=== PATIENT | female | born 1960 | race African-American/Black ===

== ENCOUNTER → 2017-04-23 | Emergency (ER) | payer OTHER ==
[~2017-04-23] VITALS: Ht 170.2 cm; Wt 90.9 kg
[~2017-04-23] MED LIST: ALBUTEROL2.5 MG/3 M; AMBIEN CR6.25 MG PO; AMRIX ER PO; AMRIX15 MG PO; ATORVASTATIN 20 MG T; ATORVASTATIN CA20 MG PO; BACLOFEN10 MG PO; BOTOX100 UNITS IJ; BUTORPHANO10 MG/1 ML NS; CELEBREX200 MG PO; CIPRO XR 500 M500 MG PO; COLACE100 MG PO; COUMADIN1 MG PO; COUMADIN10 MG PO; COUMADIN2 MG PO; COUMADIN4 MG PO; COUMADIN5 MG PO; CYMBALTA60 MG; CYMBALTA60 MG PO; DIAZEPAM5 MG PO; DILTIAZEM 24HR180 MG PO; DILTIAZEM 24HR240 MG PO; FIORICET 50-301 EACH PO; FIORICET,ESG1 TABLET PO; FLEXERIL10 MG PO; FLONASE16 G1 BOTH NARES; FLUTICASONE PRO16 GM; FORADIL AEROLI12 MCG; FORADIL AEROLI12 MCG IH; GABAPENTIN300 MG; GABAPENTIN300 MG PO; HYDROCODON-ACE1 EAC7 PO; JANTOVEN4 MG PO; LIORESAL10 MG PO; LIPITOR20 MG PO; MEDROL4 MG; MIGRANAL1 ML; MIGRANAL1 ML BOTH NARES; MIGRANAL1 ML NS; MONTELUKAST SOD10 MG; NEURONTIN300 MG PO; NEURONTIN600 MG PO; NUCYNTA100 MG; NUCYNTA100 MG PO; NUCYNTA50 MG PO; OXYCODONE HCL5 MG PO; PANTOPRAZOLE SO40 MG PO; PHENERGAN25 MG PR; PREDNISONE20 MG PO; PROMETHAZINE HC25 M1 PO; PROTONIX40 MG PO; PROVENTIL HFA6.7 GM IH; PROVENTIL,2.5 MG/3 M IH; REGLAN10 MG PO; REQUIP2 MG PO; SEROQUEL; SINGULAIR10 MG PO; STADOL NASAL2.5 ML NS; TOPIRAMATE100 MG PO; TROKENDI XR100 MG PO; VALIUM5 MG PO; WARFARIN SODIU7.5 MG PO; WARFARIN SODIUM2 MG PO; ZITHROMAX Z-PA250 MG PO; ZYRTEC10 M3 PO
[2017-04-23 11:50] LABS: MCH 30.7 PG (29.0-34.0); MCHC 33.2 G/DL (30.0-36.0); MCV 92.5 FL (83-99); MEAN PLAT.VOLUME 10.2 uM^3 (9.5-12.4); PLATELET COUNT 231 K/uL (156-360); RED BLOOD COUNT 4.11 M/uL (3.80-5.20); WHITE BLOOD COUNT 5.1 K/uL (4.1-10.2)
[2017-04-23 12:01] LABS: CHLORIDE 105 mEq/L (99-109); POTASSIUM 3.4 mEq/L (3.7-5.4); SODIUM 136 mEq/L (136-147)
[2017-04-23 12:02] LABS: GLUCOSE 101 mg/dL (70-99)
[2017-04-23 12:04] LABS: ANION GAP 8 MEQ/L (2-14)
[2017-04-23 12:06] LABS: GFR ESTIMATE (CALCULATED) > 59 mL/min/
[2017-04-23 12:07] LABS: UREA NITROGEN (BUN) 12 mg/dL (9-23)
[2017-04-23 12:11] LABS: TROP-I INTERPRETATION NEGATIVE; TROPONIN-I < 0.01 ng/mL (0.0-0.30)
[2017-04-23 13:27] LABS: D-DIMER ELISA < 150.00 ng/mLDDU (<230)
[2017-04-23 17:14] LABS: TROP-I INTERPRETATION NEGATIVE; TROPONIN-I < 0.01 ng/mL (0.0-0.30)
[2017-04-23 17:53] VITALS: BP 103/67
== END | disposition home or self-care (01) ==
LOC: EME 10:42
PROVIDERS: Physician Assistant Medical
DX: G43.909 Migraine, unspecified, not intractable, without status migrainosus (principal); M54.2 Cervicalgia; R07.9 Chest pain, unspecified; R19.7 Diarrhea, unspecified; R06.00 Dyspnea, unspecified; E78.5 Hyperlipidemia, unspecified; Z86.711 Personal history of pulmonary embolism; Z79.01 Long term (current) use of anticoagulants
CPT/HCPCS: 70450; 71020; 80048; 84484; 85027; 85379; 93005; 99281; 99284; J0780; J1200; J1885; J3010; J7030

== ENCOUNTER 2017-11-19 20:36 | Emergency (ER) | payer BC ==
[~2017-11-19] VITALS: Ht 170.2 cm; Wt 92.6 kg
[2017-11-19 21:33] LABS: APPEARANCE CLEAR ((CLEAR)); BILIRUBIN NEGATIVE; BLOOD NEGATIVE; COLOR YELLOW ((YELLOW)); GLUCOSE (STRIP) NEGATIVE; KETONES NEGATIVE; LEUKOCYTES SMALL; NITRITE NEGATIVE; PROTEIN (STRIP) NEGATIVE; SPECIFIC GRAVITY 1.018 (1.000-1.030); UROBILINOGEN 0.2 MG/DL (0.2-1.0)
[2017-11-19 21:39] LABS: BACTERIA RARE /HPF; EPITHELIAL CELLS RARE /HPF; MUCUS 1+ /LPF; RED BLOOD CELLS 0-5 /HPF (0-5); UCUL ADDED? NO; WHITE BLOOD CELLS 0-5 /HPF (0-5)
[2017-11-19 21:40] LABS: HEMATOCRIT 36.2 % (36.0-46.0); HEMOGLOBIN 12.4 G/DL (11.9-15.5); MCH 30.5 PG (29.0-34.0); MCHC 34.3 G/DL (30.0-36.0); MCV 89.2 FL (83-99); PLATELET COUNT 199 K/uL (156-360); RBC DIS.WIDTH-CV 12.6 % (11.8-14.6); RBC DIS.WIDTH-SD 41.7 % (39-53); RED BLOOD COUNT 4.06 M/uL (3.80-5.20); WHITE BLOOD COUNT 4.7 K/uL (4.1-10.2)
[2017-11-19 21:51] LABS: ALBUMIN 4.3 g/dL (3.2-4.8); CHLORIDE 106 mEq/L (99-109); POTASSIUM 3.6 mEq/L (3.7-5.4); SODIUM 138 mEq/L (136-147)
[2017-11-19 21:53] LABS: GLUCOSE 98 mg/dL (70-99); TOTAL PROTEIN 7.1 g/dL (6.4-8.3)
[2017-11-19 21:55] LABS: TOTAL BILIRUBIN 0.5 mg/dL (0.0-1.0)
[2017-11-19 21:57] LABS: ALKALINE PHOSPHATASE 93 IU/L (3-129); CREATININE 0.9 mg/dL (0.6-1.3); GFR ESTIMATE (CALCULATED) > 59 mL/min/
[2017-11-19 21:58] LABS: UREA NITROGEN (BUN) 16 mg/dL (9-23)
[2017-11-19 21:59] LABS: AST (GOT) 21 IU/L (2-34)
[2017-11-19 22:00] LABS: ALT (GPT) 25 IU/L (3-49)
[2017-11-19 22:06] LABS: QUANTITATIVE HCG 4.2 MIU/ML
[2017-11-19] MEDS ORDERED: BENTYL20 MG PO (23:31)
[2017-11-19 23:42] VITALS: BP 109/75
== END 2017-11-20 00:08 | disposition home or self-care (01) ==
LOC: RME 20:36 → EME 20:36 → RME 11-20 00:08
DX: R10.31 Right lower quadrant pain (principal); M54.9 Dorsalgia, unspecified; R11.0 Nausea; E78.5 Hyperlipidemia, unspecified; Z86.711 Personal history of pulmonary embolism; Z79.01 Long term (current) use of anticoagulants
CPT/HCPCS: 74177; 80053; 81003; 84702; 85027; 99281; 99285; J7040